=== PATIENT | male | born 1950 | race Caucasian/White ===

== ENCOUNTER 2024-01-06 00:35 | Day surgery (SDC) | payer MEDICARE, BC, SELFPAY ==
[2023-12-09 14:51] VITALS: BMI 26.4
--- NOTE | 2024-01-02 10:00 | SUR.PREOP ---
Patient called regarding upcoming procedure. Reviewed preop instructions, appointment times, and procedure prep.
--- NOTE | 2024-01-05 15:12 | P.HP_ITS ---
History of Present Illness History of Present Illness Consent: Risks, benefits, and alternatives have been discussed and questions answered. Patient agrees to proceed with procedure. Chief complaint: neoplasm screening Narrative: Rodrick Daniels is a 73 year old male Referred for colon cancer screening. Review of Systems Review of Systems: All systems reviewed & are unremarkable except as noted in HPI and below [facility] Social History Social History Smoking status: Never smoker Drinks per week: 5 Substance use: never Substance use type: does not use Living arrangements: with family Spiritual care concerns: No Meds Home Medications and Allergies Home Medications Medication Instructions Recorded Confirmed Type aspirin 81 mg tablet,delayed 81 mg PO DAILY 12/09/23 01/06/24 History release hydrochlorothiazide 12.5 mg tablet 12.5 mg PO PRN 12/09/23 01/06/24 History loratadine 10 mg tablet (Claritin) 10 mg PO PRN PRN allergies 12/09/23 01/06/24 History olmesartan 20 mg tablet 20 mg PO DAILY 12/09/23 01/06/24 History Allergies Allergy/AdvReac Type Severity Reaction Status Date / Time Penicillins Allergy Hives Verified 01/06/24 06:47 Exam Const: General: alert Orientation/consciousness: patient oriented x3 Resp: Auscultation: clear to auscultation bilaterally Cardio: Rhythm: regular rhythm GI: GI Palp: Yes Soft to palpation and No Tenderness to palpation present (GI) Neuro: General: patient oriented x3 Assessment and Plan Assessment and plan (1) Colon cancer screening: Code(s): Z12.11 - Encounter for screening for malignant neoplasm of colon Status: Acute Assessment and Plan: Colonoscopy with possible biopsy or polypectomy or cautery or injection of substances.
[2024-01-06 06:49] VITALS: BP 119/79; PULSE 62; RESP 16; TEMP 36.1; O2SAT 100
[2024-01-06] MEDS: LACTATED RINGERS 1,000 ML 150 ML IV CONT (07:04)
--- NOTE | 2024-01-06 07:49 | P.PNAN_ITS ---
Anes - Initial Pre Proc Eval Procedure: Operation Date: 01/06/24 08:00 Proposed Procedures p Screening Colonoscopy - Usama Srivastava MD Date/Time: 01/06/24 07:49 Surgeon: Usama Srivastava MD Pre Op Diagnosis: neoplasm screening Patient Data Age: 73 Gender: M Height: 1.73 m Weight: 81.1 kg Last Vital Signs Temp 97.0 F L 01/06/24 06:49 Pulse 62 01/06/24 06:49 Resp 16 01/06/24 06:49 BP 119/79 01/06/24 06:49 Pulse Ox 100 01/06/24 06:49 O2 Del Method Room Air 01/06/24 06:49 Allergies Allergy/AdvReac Type Severity Reaction Status Date / Time Penicillins Allergy Hives Verified 01/06/24 06:47 Home Medications Medication Instructions Recorded Confirmed Type aspirin 81 mg tablet,delayed 81 mg PO DAILY 12/09/23 01/06/24 History release hydrochlorothiazide 12.5 mg tablet 12.5 mg PO PRN 12/09/23 01/06/24 History loratadine 10 mg tablet (Claritin) 10 mg PO PRN PRN allergies 12/09/23 01/06/24 History olmesartan 20 mg tablet 20 mg PO DAILY 12/09/23 01/06/24 History Patient hx anesthesia problems: none Family hx anesthesia problems: none Results Review: All pre-operative results and documents have been reviewed as part of the pre- operative evaluation. PMF Social History Social History Smoking status: Never smoker Drinks per week: 5 Substance use: never Substance use type: does not use Living arrangements: with family Spiritual care concerns: No Anes - Eval Final PreProcedure Day of Procedure 01/06/24 07:49 Patient weight: normal Heart: regular rate and rhythm Lungs: clear to auscultation Airway: Mallampati scale class II Neurological: alert and oriented Last oral intake: >/= 8 hours ASA classification: III Emergent: no Anesthetic plan: proceed Anesthesia type and monitoring: general GIVS and standard monitoring Results Review: All pre-operative results and documents have been reviewed as part of the pre- operative evaluation. Informed Consent: The patient's anesthetic plan and its attendant risks and benefits were discussed with the patient/family/POA. Questions were solicited and answers provided to the satisfaction of the patient/family/POA.
[2024-01-06 08:30] VITALS: BP 114/60; PULSE 74; RESP 16; O2SAT 100
[2024-01-06 08:40] VITALS: BP 92/52; PULSE 55; RESP 22; O2SAT 97
[2024-01-06 08:50] VITALS: BP 98/54; PULSE 54; RESP 16; O2SAT 100
== END 2024-01-06 08:55 | disposition home or self-care (01) ==
PROVIDERS: PCP Internal Medicine; Visit Provider Internal Medicine Gastroenterology
PROC: 0DJD8ZZ Inspection of Lower Intestinal Tract, Via Natural or Artificial Opening Endoscopic (ICD-10-PCS; CPT 45378; principal; 2024-01-06 08:00)
DX: Z12.11 Encounter for screening for malignant neoplasm of colon (principal); Z79.82 Long term (current) use of aspirin
CPT/HCPCS: G0121; J2704; J7120

== ENCOUNTER 2025-04-11 08:31 | Emergency (ER) | payer MEDICARE, BC, SELFPAY ==
--- NOTE | 2025-04-11 08:33 | ECG_ITS ---
Test Date: 2025-04-11 08:39:27 Measurements Intervals [place] Rate: 64 P: 48 KS: 167 QRS: 44 QRSD: 94 T: 44 QT: 428 QTc: 443 Interpretive Statements SINUS RHYTHM WITH SINUS ARRHYTHMIA No previous ECG available for comparison Electronically Signed On 04-12-2025 14:19:37 CDT by Lazara Brooks M.D.
[2025-04-11 08:35] VITALS: BP 190/85; PULSE 53; RESP 14; TEMP 36.4; O2SAT 100
--- OUTSIDE RECORDS SUMMARY | 2025-04-11 08:37 | XMS_ITS | Referral Summary ---
Author Organization [facility] Healthcare Address [address] [place] [address] Care Team Providers Care Blender Name Role Phone Jayesh Chowdhury MD Unavailable [phone] Jayesh Chowdhury MD Primary Care Provider [phone] Encounters Date Type Department Care Team Description 04/11/2025 Telephone [email or web address] [address] [address] Jayesh Chowdhury MD Irregular Heart Beat from Last 3 Months Allergies Active Allergy Reactions Criticality Noted Date Comments Penicillins Rash Medium Medications aspirin (ASPIR-81 ORAL) Take by mouth Active hydroCHLOROthiaz kamran 12.5 mg tablet TAKE 1 TABLET BY MOUTH DAILY 90 tablet 2 03/09/2025 Active olmesartan (BENICAR) 20 mg tablet TAKE 1 TABLET(20 MG) BY MOUTH DAILY 90 tablet 3 03/11/2025 Active Active Problems Problem Noted Date Diagnosed Date Acute pain of right shoulder 10/26/2024 Assessment & Plan (10/26/2024 9:41 AM EXECUTIVE CHAIRMAN OF THE BOARD): Likely shoulder strain. No evidence of rotator cuff disruption. Impacted cerumen of left ear 11/13/2022 Mixed conductive and sensorineural hearing loss, bilateral 11/13/2022 Sensorineural hearing loss, asymmetrical 022 Dysfunction of both eustachian tubes 11/13/2022 Essential hypertension 08/01/2021 Assessment & Plan (10/26/2024 9:43 AM EXECUTIVE CHAIRMAN OF THE BOARD): BP at target by my exam Assessment & Plan (04/19/2024 10:23 AM CDT): BP at target. Check labs. Bladder cancer 08/20/2016 Assessment & Plan (10/26/2024 9:41 AM EXECUTIVE CHAIRMAN OF THE BOARD): Follows with Urology. Assessment & Plan (04/19/2024 10:23 AM CDT): Has 1 last cystoscopy and then maybe released. Mass of urethra 03/05/2016 Malignant neoplasm of prostate 08/30/2008 Assessment & Plan (10/26/2024 9:43 AM EXECUTIVE CHAIRMAN OF THE BOARD): Follows with Urology Assessment & Plan (04/19/2024 10:23 AM CDT): Follows with Urology at this point Immunizations Immunization Administration Dates Next Due Influenza, Quad, Adjuvantate d, Intramuscular 09/19/2023,10/08/2022,11/28/2021 Influenza, Trivalent, Adjuva nted, Intramuscular 09/21/2024 Pfizer SARS-CoV-2 Monovalent Vaccination (12+ Yrs) PURPLE 02/01/2021,01/04/2021 Pneumococcal Conjugate Pcv20 03/14/2022,03/04/20 RSV Vaccine, Pref, Recombina nt, Subunit, Adjuvanted, PF, IM (Arexvy) 09/19/2023 ZOSTER Recombinant 04/19/2022,02/21/2022 Social History Tobacco Use Types Packs/Day Years Used Date Smoking Tobacco: Never Smokeless Tobacco: Never Tobacco Cessation:Counseling Given: Not Answered PHQ-2 Answer Date Recorded PHQ-2 Score 0 07/22/2019 Sex and Gender Information Value Date Recorded Sex Assigned at Not on file Legal Sex Male 3:07 PM EXECUTIVE CHAIRMAN OF THE BOARD Gender Identity Male 02/11/2022 8:30 AM CDT Sexual Orientation Straight 02/11/2022 8: 30 AM CDT Last Filed Vital Signs Vital Sign Reading Time Taken Comments Blood Pressure 164/88 10/26/2024 9:20 AM EXECUTIVE CHAIRMAN OF THE BOARD Pulse 65 10/26/2024 9:20 AM EXECUTIVE CHAIRMAN OF THE BOARD Temperature 36.7 C (98.1 F) 02/11/2019 11:53 AM CDT Respiratory Rate 18 02/11/2019 3:14 PM CDT Oxygen Saturation 100% 02/11/2019 3:14 PM CDT Inhaled Oxygen Concentration - - Weight 82.1 kg (181 lb) 10/26/2024 9:20 AM EXECUTIVE CHAIRMAN OF THE BOARD Height 172.7 cm (5' 8 ) 10/26/2024 9:20 AM EXECUTIVE CHAIRMAN OF THE BOARD Body Mass Index 27.52 10/26/2024 9:20 AM EXECUTIVE CHAIRMAN OF THE BOARD Plan of Treatment Not on file Insurance MEDICARE [facility] Address: [address] [place] [id number] MEDICARE [facility] MEDICARE [facility] FEDERAL MEDICARE [facility] Advance Directives For more information, please contact: [phone] * Full Code (Latest Code Status on File) Date Activated Date Inactivated Comments 02/11/2019 4:28 AM 02/11/2019 8:55 PM Care Teams Blender Relationship Specialty Start Date End Date Jayesh Chowdhury MD [address] [address] PCP - General Internal Medicine 12/09/18 Jayesh Chowdhury MD [address] [address] 06/30/18
--- OUTSIDE RECORDS SUMMARY | 2025-04-11 08:37 | XMS_ITS | Encounter Summary ---
Author Organization [facility] Address [address] [place] [address] Care Team Providers Care Chief Building Inspector Name Role Phone Jayesh Chowdhury MD Unavailable [phone] Jayesh Chowdhury MD Primary Care Provider [phone] Reason for Visit * Reason Onset Date Comments Irregular Heart Beat 04/11/2025 Encounter Details Date Type Department Care Team (Late st Contact Info) Description 04/11/2025 Telephone [facility] [address] [address] Jayesh Chowdhury MD [address] [facility] [address] [place] [address] Irregular Heart Beat Social History Tobacco Use Types Packs/Day Years Used Date Smoking Tobacco: Never Smokeless Tobacco: Never PHQ-2 Answer Date Recorded PHQ-2 Score 0 07/22/2019 Sex and Gender Information Value Date Recorded Sex Assigned at Not on file Legal Sex Male 3:07 PM BUCKLE ASSEMBLER Gender Identity Male 02/11/2022 8:30 AM CDT Sexual Orientation Straight 02/11/2022 8: 30 AM CDT documented as of this encounter Miscellaneous Notes * Telephone Encounter - Pepper Chamberlain - 04/11/2025 8:21 AM CDT Wendi with [facility] calling, pt was scheduled for surgery today. She said pt's BP has been good however pt's pulse has been in the 40s to the point they have to cancel surgery. She said pt is asymptomatic but was asking if we wanted to see pt or send to ER for evaluation. Spoke withDr Chowdhury. Orders to send pt to ER. Wendi notified and voiced understanding. documented in this encounter Plan of Treatment Not on file documented as of this encounter Visit Diagnoses Not on filedocumented in this encounter Care Teams Chief Building Inspector Relationship Specialty Start Date End Date Jayesh Chowdhury MD [address] [address] [address] PCP - General Internal Medicine 12/09/18 Jayesh Chowdhury MD [address] [address] [address] 06/30/18 documented as of this encounter
--- OUTSIDE RECORDS SUMMARY | 2025-04-11 08:37 | XMS_ITS ---
Author Organization [facility] Address [address] [place] [address] Care Team Providers Care Plaster Mold Maker Name Role Phone Jayesh Chowdhury MD Unavailable [phone] Jayesh Chowdhury MD Primary Care Provider [phone] Active Problems Problem Noted Date Diagnosed Date Acute pain of right shoulder 10/26/2024 Assessment & Plan (10/26/2024 9:41 AM MERCHANDISE DISTRIBUTOR): Likely shoulder strain. No evidence of rotator cuff disruption. Impacted cerumen of left ear 11/13/2022 Mixed conductive and sensorineural hearing loss, bilateral 11/13/2022 Sensorineural hearing loss, asymmetrical 022 Dysfunction of both eustachian tubes 11/13/2022 Essential hypertension 08/01/2021 Assessment & Plan (10/26/2024 9:43 AM MERCHANDISE DISTRIBUTOR): BP at target by my exam Assessment & Plan (04/19/2024 10:23 AM CDT): BP at target. Check labs. Bladder cancer 08/20/2016 Assessment & Plan (10/26/2024 9:41 AM MERCHANDISE DISTRIBUTOR): Follows with Urology. Assessment & Plan (04/19/2024 10:23 AM CDT): Has 1 last cystoscopy and then maybe released. Mass of urethra 03/05/2016 Malignant neoplasm of prostate 08/30/2008 Assessment & Plan (10/26/2024 9:43 AM MERCHANDISE DISTRIBUTOR): Follows with Urology Assessment & Plan (04/19/2024 10:23 AM CDT): Follows with Urology at this point Current Treatment and Therapy Plans No current plan information found. Past Treatment and Therapy Plans No past plan information found. Lifetime Dose Tracking * Chemical Lifetime Dose Automatic Entry Manual Entr y DLP 169 mGycm 169 mGycm 0 mGycm
--- OUTSIDE RECORDS SUMMARY | 2025-04-11 08:37 | XMS_ITS | Clinical Summary ---
Author Organization [facility] Healthcare Address [address] [place] [address] Care Team Providers Care Aquarium Tank Attendant Name Role Phone Jayesh Chowdhury MD Unavailable [phone] Jayesh Chowdhury MD Primary Care Provider [phone] Allergies Active Allergy Reactions Criticality Noted Date [...] 10/26/2024 Assessment & Plan (10/26/2024 9:41 AM DIRECT CARE STAFFER): Likely shoulder strain. No evidence of rotator cuff disruption. Impacted cerumen of left ear 11/13/2022 Mixed conductive and sensorineural hearing loss, bilateral 11/13/2022 Sensorineural hearing loss, asymmetrical 022 Dysfunction of both eustachian tubes 11/13/2022 Essential hypertension 08/01/2021 Assessment & Plan (10/26/2024 9:43 AM DIRECT CARE STAFFER): BP at target by my exam Assessment & Plan (04/19/2024 10:23 AM CDT): BP at target. Check labs. Bladder cancer 08/20/2016 Assessment & Plan (10/26/2024 9:41 AM DIRECT CARE STAFFER): Follows with Urology. Assessment & Plan (04/19/2024 10:23 AM CDT): Has 1 last cystoscopy and then maybe released. Mass of urethra 03/05/2016 Malignant neoplasm of prostate 08/30/2008 Assessment & Plan (10/26/2024 9:43 AM DIRECT CARE STAFFER): Follows with Urology Assessment & Plan (04/19/2024 10:23 AM CDT): Follows with Urology at this point Encounters Date Type Department Care Team Description 04/11/2025 Telephone [facility] [address] [facility] [address] [address] Jayesh Chowdhury MD Irregular Heart Beat from Last 3 Months Immunizations Immunization Administration Dates Next Due Influenza, Quad, Adjuvantate d, Intramuscular 09/19/2023,10/08/2022,11/28/2021 Influenza, Trivalent, Adjuva nted, Intramuscular 09/21/2024 Pfizer SARS-CoV-2 Monovalent Vaccination (12+ Yrs) PURPLE 02/01/2021,01/04/2021 Pneumococcal Conjugate Pcv20 03/14/2022,03/04/20 RSV Vaccine, Pref, Recombina nt, Subunit, Adjuvanted, PF, IM (Arexvy) 09/19/2023 ZOSTER Recombinant 04/19/2022,02/21/2022 Surgical History Surgery Date Site/Laterality Comments NH LAP,PROSTATECTOMY,RADICAL,W/NERVE SPARE,INCL ROBOTIC Prostatect Retropubic Radical W/ Nerve Sparing Laparoscopic - (Added by TW Conv) PROSTATECTOMY Medical History Medical History Date Comments Cancer (HCC) Bladder cancer (HCC) Hypertension Family History Medical History Relation Name Comments Lung cancer Father Family history of lung cancer - (Added by TW Conv) Colon cancer Mother Colon cancer - (Added by TW Conv) Relation Name Status Comments Father Mother Social History Tobacco Use Types Packs/Day Years Used Date Smoking Tobacco: Never Smokeless Tobacco: Never Tobacco Cessation:Counseling Given: Not Answered PHQ-2 Answer Date Recorded PHQ-2 Score 0 07/22/2019 Sex and Gender Information Value Date Recorded Sex Assigned at Not on file Legal Sex Male 3:07 PM DIRECT CARE STAFFER Gender Identity Male 02/11/2022 8:30 AM CDT Sexual Orientation Straight 02/11/2022 8: 30 AM CDT Obstetrics History Last Filed Vital Signs Vital Sign Reading Time Taken Comments Blood Pressure 164/88 10/26/2024 9:20 AM DIRECT CARE STAFFER Pulse 65 10/26/2024 9:20 AM DIRECT CARE STAFFER Temperature 36.7 C (98.1 F) 02/11/2019 11:53 AM CDT Respiratory Rate 18 02/11/2019 3:14 PM CDT Oxygen Saturation 100% 02/11/2019 3:14 PM CDT Inhaled Oxygen Concentration - - Weight 82.1 kg (181 lb) 10/26/2024 9:20 AM DIRECT CARE STAFFER Height 172.7 cm (5' 8 ) 10/26/2024 9:20 AM DIRECT CARE STAFFER Body Mass Index 27.52 10/26/2024 9:20 AM DIRECT CARE STAFFER Plan of Treatment Health Maintenance Due Date Last Done Comments Fall Risk Assessment 1950 Hepatitis C Screening 1950 DTaP/Tdap/Td Vaccine (1 - Tdap) 1960 Hepatitis B Screening 1967 Well Visit 65+ 2014 Depression Screening 02/11/2020 02/10/2019 Covid-19 Vaccine (4 2023-2 5 season) 2024 11/28/2021, 02/01/2021, 01/04/2021 Colon Cancer Screening-Colonoscopy 01/06/20342023 Pneumococcal vaccine 65+ Completed 03/14/2022, 04/0 03/2022 Zoster Vaccine Completed 04/19/2022, 02/21/2022 Influenza Vaccine Completed 09/21/2024, , 10/08/2022, Additional history exists Insurance MEDICARE [facility] FEDERAL MEDICARE [facility] MEDICARE [facility] MEDICARE [facility] Advance Directives For more information, please contact: [phone] * Full Code (Latest Code Status on File) Date Activated Date Inactivated Comments 02/11/2019 4:28 AM 02/11/2019 8:55 PM Care Teams Aquarium Tank Attendant Relationship Specialty Start Date End Date Jayesh Chowdhury MD [address] [employer] [address] PCP - General Internal Medicine 12/09/18 Jayesh Chowdhury MD [address] [address] 06/30/18
--- OUTSIDE RECORDS SUMMARY | 2025-04-11 08:37 | XMS_ITS | CONTINUITY OF CARE DOCUMENT ---
Author Name gail reynolds Address Unknown Organization [facility] Address [address] [facility] [place] [address] Phone [phone] Care Team Providers Care Carbon Plant Grinder Name Role Phone gail reynolds Unavailable Unavailable
--- NOTE | 2025-04-11 08:45 | PC.NURSE ---
Breath sounds clear, denies any chest pain or shortness of breath
--- OUTSIDE RECORDS SUMMARY | 2025-04-11 08:55 | XMS_ITS | CONTINUITY OF CARE DOCUMENT ---
Author Name gail reynolds Address Unknown Organization [facility] [address] Address [address] [facility] [address] [place] [address] Phone [phone] Care Team Providers Care Tube Blower Name Role Phone gail reynolds Unavailable Unavailable
[2025-04-11 09:01] VITALS: BP 151/76; PULSE 48; RESP 16; O2SAT 98
--- NOTE | 2025-04-11 09:18 | ED.ARRPALP ---
HPI - Arrhythmia/Palpitations General Chief Complaint: Arrhythmia/Palpitations Stated Complaint: LOW HEART RATE ASYMTOMATIC Time Seen by Provider: 04/11/25 08:51 History of Present Illness HPI narrative: 74-year-old male presenting with low heart rate. He went in for cataract surgery and his heart rate was in the upper 40s so he was advised to come to the ER. States that he had cataract surgery last week and his heart rate was in the 50s. He denies any complaints. No chest pain, shortness of breath, lightheadedness, diaphoresis, nausea, leg swelling. No recent infectious symptoms. No medication changes recently. Related Data Home Medications ?Medication ?Instructions ?Recorded ?Confirmed ?Last Taken ?Type aspirin 81 mg tablet,delayed 81 mg PO DAILY 12/09/23 01/06/24 01/05/24 History release hydrochlorothiazide 12.5 mg tablet 12.5 mg PO PRN 12/09/23 01/06/24 01/05/24 History loratadine 10 mg tablet (Claritin) 10 mg PO PRN PRN allergies 12/09/23 01/06/24 01/05/24 History olmesartan 20 mg tablet 20 mg PO DAILY 12/09/23 01/06/24 01/05/24 History Allergies Allergy/AdvReac Type Severity Reaction Status Date / Time Penicillins Allergy Hives Verified 01/06/24 06:47 Review of Systems Review of Systems: All systems reviewed & are unremarkable except as noted in HPI and below [facility] Social History Social History Smoking status: Never smoker Drinks per week: 5 Substance use: never Substance use type: does not use Living arrangements: with family Spiritual care concerns: No Exam Narrative: GENERAL: Well-appearing, no acute distress, pleasant cooperative HEAD: Normocephalic, atraumatic. EYES: PERRLA and EOMI. ENT: Nares clear, no rhinorrhea or epistaxis. Mucous membranes moist. NECK: Supple. CHEST: Clear to auscultation. No respiratory distress. HEART: Bradycardic, regular rhythm ABDOMEN: Soft, nontender, nondistended EXTREMITIES: Normal range of motion. No edema. SKIN: Warm, dry, no rash. NEURO: No focal deficits. Alert and oriented x3. PSYCH: Normal mood and affect. Course Vital Signs Vital signs: Vital Signs Temperature 97.6 F 04/11/25 08:35 Pulse Rate 53 L 04/11/25 08:35 Respiratory Rate 14 04/11/25 08:35 Blood Pressure 190/85 H 04/11/25 08:35 Pulse Oximetry 100 04/11/25 08:35 Oxygen Delivery Room Air 04/11/25 08:35 Temperature 97.6 F 04/11/25 08:35 Pulse Rate 53 L 04/11/25 08:35 Respiratory Rate 14 04/11/25 08:35 Blood Pressure 190/85 H 04/11/25 08:35 Pulse Oximetry 100 04/11/25 08:35 Oxygen Delivery Room Air 04/11/25 08:35 MDM - Arrhythmia/Palpitations MDM Narrative Medical decision making narrative: 74-year-old male presenting with low heart rate at outpatient procedure. Patient is hypertensive and bradycardic with heart rate in the 50s. EKG shows sinus bradycardia, normal intervals, no ST elevations or depressions. Patient is on a statin and ARB, no beta or calcium channel blockers. Blood work without acute abnormalities. Troponin is undetectable. Patient remains asymptomatic. Spoke with patient's PCP who agrees with discharge and outpatient follow-up. He will arrange for a Holter monitor. Patient and his were updated with this plan. They are agreeable and will follow up as discussed. Patient discharged in stable condition. Differential Diagnosis Differential diagnosis: Likely palpitations and other (Sinus bradycardia, heart block) Medical Records Attestation: I reviewed the patient's medical records. Lab Data Attestation: I reviewed the patient's lab results. 04/11/25 09:48 04/11/25 09:48 Labs: Lab Results 04/11/25 Range/Units 09:48 WBC 7.5 (4.5-10.0) K/mm3 RBC 4.83 (4.6-6.20) M/mm3 Hgb 14.6 (14.0-18.0) g/dL Hct 45.5 (42.0-52.0) % MCV 94.2 (80-100) fl MCH 30.2 (26-34) pg MCHC 32.1 (32-36) g/dl RDW 14.1 (11.5-14.5) % Plt Count 296 (150-375) k/mm3 MPV 10.9 H (7.4-10.4) fl Immature Gran % (Auto) 0.3 (0-0.5) % Neut % (Auto) 51.7 (45.5-73.1) % Lymph % (Auto) 28.4 (18.3-44.2) % [place] % (Auto) 8.4 (2.6-8.5) % Eos % (Auto) 9.9 H (0-4.4) % Baso % (Auto) 1.3 H (0.2-1.2) % Lymph # (Auto) 2.13 (0.9-3.2) K/mm3 [place] # (Auto) 0.6 (0.1-0.6) K/mm3 Eos # (Auto) 0.7 H (0-0.3) K/mm3 Baso # (Auto) 0.1 (0.0-0.1) K/mm3 Abs Immat Gran (auto) 0.02 (0.00-0.031) K/mm3 Absolute Neuts (auto) 3.9 (1.3-6.7) K/mm3 Absolute Nucleated RBC 0.000 (0.0-0.012) K/mm3 Nucleated RBC % 0.0 (0.0-0.2) % Sodium 141 (137-145) mmol/L Potassium 4.5 (3.4-5.0) mmol/L Chloride 103 (98-107) mmol/L Carbon Dioxide 30 (22-30) mmol/L Anion Gap 8 (4-12) mmol/L BUN 16 (9-20) mg/dL Creatinine 0.86 (0.7-1.3) mg/dL Estim Creat Clear Calc 63 ml/min Estimated GFR > 60 (59 - ) Glucose 96 (65-110) mg/dL Calcium 9.5 (8.4-10.2) mg/dL Total Bilirubin 0.8 (0.2-1.3) mg/dL AST 33 (17-59) U/L ALT 19 (6-50) U/L Alkaline Phosphatase 73 (38-126) U/L Troponin I < 0.012 (0.000-0.034) ng/mL Total Protein 8.0 (6.3-8.2) g/dL Albumin 4.8 (3.5-5.1) g/dL Critical Care Time Critical Care Time Critical Care Time: No Discharge Plan Discharge Clinical Impression: Asymptomatic bradycardia Patient Disposition: Home Condition: Stable Instructions: Antibiotic Form, Bradycardia (ED) Additional Instructions: You were seen today for a low heart rate. Your EKG and blood work are reassuring. Please follow-up with your PCP. If your symptoms worsen or other concerning symptoms arise, please return to the ER. Patient Language: Swedish Prescriptions: No Action olmesartan 20 mg tablet 20 mg PO DAILY hydrochlorothiazide 12.5 mg tablet 12.5 mg PO PRN aspirin 81 mg Tablet,Delayed Release (Dr/Ec) 81 mg PO DAILY loratadine [Claritin] 10 mg Tablet 10 mg PO PRN PRN (Reason: allergies) Follow-up/Referrals: [place],Jayesh Beckett MD [Primary Care Provider] -
[2025-04-11 09:31] VITALS: BP 153/74; PULSE 50; RESP 13; O2SAT 100
[2025-04-11 09:56] LABS: Basophils Absolute Auto 0.1 K/mm3 (0.0-0.1); Basophils Percent Auto 1.3 % (0.2-1.2); Eosinophils Absolute Auto 0.7 K/mm3 (0-0.3); Eosinophils Percent Auto 9.9 % (0-4.4); Hematocrit 45.5 % (42.0-52.0); Hemoglobin 14.6 g/dL (14.0-18.0); Immature Granulocyte Absolute 0.02 K/mm3 (0.00-0.031); Immature Granulocyte Percent A 0.3 % (0-0.5); Lymphocytes Absolute Auto 2.13 K/mm3 (0.9-3.2); Lymphocytes Percent Auto 28.4 % (18.3-44.2); Mean Corpuscular HGB Conc 32.1 g/dl (32-36); Mean Corpuscular Hemoglobin 30.2 pg (26-34); Mean Corpuscular Volume 94.2 fl (80-100); Mean Platelet Volume 10.9 fl (7.4-10.4); Monocytes Absolute Auto 0.6 K/mm3 (0.1-0.6); Monocytes Percent Auto 8.4 % (2.6-8.5); Neutrophils Absolute Auto 3.9 K/mm3 (1.3-6.7); Neutrophils Percent Auto 51.7 % (45.5-73.1); Platelet Count Result 296 k/mm3 (150-375); Red Blood Count 4.83 M/mm3 (4.6-6.20); Red Cell Distribution Width 14.1 % (11.5-14.5); White Blood Count 7.5 K/mm3 (4.5-10.0)
[2025-04-11 10:01] VITALS: BP 166/81; PULSE 52; RESP 10; O2SAT 100
[2025-04-11 10:22] LABS: Alanine Aminotransferase 19 U/L (6-50); Albumin Level 4.8 g/dL (3.5-5.1); Alkaline Phosphatase 73 U/L (38-126); Anion Gap 8 mmol/L (4-12); Aspartate Amino Transferase 33 U/L (17-59); Bilirubin,Total 0.8 mg/dL (0.2-1.3); Blood Urea Nitrogen 16 mg/dL (9-20); Calcium 9.5 mg/dL (8.4-10.2); Carbon Dioxide 30 mmol/L (22-30); Chloride 103 mmol/L (98-107); Estimated CRCL calculation 63 ml/min; Estimated Glomerular Filt Rate > 60; Glucose 96 mg/dL (65-110); Potassium 4.5 mmol/L (3.4-5.0); Sodium 141 mmol/L (137-145)
[2025-04-11 10:33] LABS: Troponin I < 0.012 ng/mL (0.000-0.034)
[2025-04-11 11:12] VITALS: BP 160/80; PULSE 88; RESP 16; O2SAT 99
== END 2025-04-11 11:14 | disposition home or self-care (01) ==
PROVIDERS: Emergency Provider Emergency Medicine; PCP Internal Medicine
DX: R00.1 Bradycardia, unspecified (principal); Z79.82 Long term (current) use of aspirin; Z79.899 Other long term (current) drug therapy
CPT/HCPCS: 36415; 80053; 84484; 85025; 93005; 99284